=== PATIENT | female | born 1995 | race Caucasian/White ===

== ENCOUNTER → 2016-05-17 | Day surgery (SDC) | payer OTHER ==
[~2016-05-17] MED LIST: FENTANYL PF 100 MCG/2 ML VIAL. IV PRN; HYDROMORPHONE 2 MG/ML VIAL. IV PRN; IV RINGERS,LACTATED 1000ML 1,000 ML IV SCH; LIDOCAINE 1% 1 ML SYRINGE. ID PRN; LIDOCAINE 2% PF Vial for OR 5 ML VIAL. ONE; MORPHINE SULFATE 2 MG/ML DISP.SYRIN. IV PRN; ONDANSETRON PF 4 MG/2 ML VIAL. IV PRN; PROCHLORPERAZINE 10 MG/2 ML VIAL. IV PRN; PROPOFOL 40 ML IV ONE; birth control
[2016-05-17 09:24] LABS: NEG OBC UR NEG; POS OBC UR POS
--- NOTE | 2016-05-17 09:43 | PDOC1 ---
HISTORY & PHYSICAL H&P Yajaira Ramirez This 21 year old female presents for Constipation. History of Present Illness: 1. H/o colon polyp removed in 2013 and is here for repeat colonoscopy. Has some constipation but otherwise no other issue. PROBLEM LIST: Problem Description Onset Date Hemorrhoids 06/05/2013 PAST MEDICAL/SURGICAL HISTORY (Detailed) Disease/disorder Onset Date Management Date Comments [place] teeth extraction Colonic polyps colonoscopy with biopsy 05/14/2013 Internal hemorrhoids DIAGNOSTICS HISTORY: Test Ordered Interpretation Result completed SMALL BOWEL SERIES 12/18/2012 Imp: Unremarkable small bowel series. 12/22/2012 COLONOSCOPY AND BIOPSY 04/24/2013 Imp: ?Ileitis, (bx). Polyp, (bx). Grade 1 Internal hemorrhoids. 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 05/14/2013 Test Ordered Ordering Comments Modifier SMALL BOWEL SERIES 12/18/2012 COLONOSCOPY AND BIOPSY 04/24/2013 Family History (Detailed) Relationship Family Member Name Age at Condition Onset Age Cause of Maternal grandmother N Cancer, bladder N Mother N Cancer, breast N Paternal grandmother N Cancer, lung N SOCIAL HISTORY (Detailed) Tobacco use reviewed. The patient is right-handed. Preferred language is Ukrainian. MARITAL STATUS/FAMILY/SOCIAL SUPPORT Currently single. 0 son(s). 0 daughter(s). Smoking status: Never smoker. SMOKING STATUS Use Status Type Smoking Status Usage Per Day Years Used Total Pack Years no/never Never smoker TOBACCO CESSATION INFORMATION Date Counseled By Order Status Description Code Tobacco Cessation Information 04/24/2013 Kal Rosario Tobacco cessation counseling completed Tobacco cessation counseling The patient does not use caffeine. EXPERIENCE Patient has no experience. Medication Reconciliation Patient is on no medications. Allergies Ingredient Reaction Medication Name Comment SULFA (SULFONAMIDE ANTIBIOTICS) hives REVIEW OF SYSTEMS System Neg/Pos Details Constitutional Negative Chills and fever. ENMT Negative Ear infections and nasal congestion. Respiratory Negative Chronic cough, dyspnea and wheezing. Cardio Negative Chest pain. GI Negative Abdominal pain, black tarry stools, bloating, change in appetite, change in stool caliber and nausea. Negative Dysuria. Endocrine Negative Cold intolerance and heat intolerance. Neuro Negative Dizziness and headache. Psych Negative Anxiety and depression. MS Negative Back pain and joint pain. Lucho/Lymph Negative Easy bleeding and easy bruising. Physical Exam Exam Findings Details Genitourinary Female Normal No suprapubic tenderness. No CVA tenderness. Constitutional Normal Well developed. Eyes Normal Conjunctiva - Right: Normal, Left: Normal. Sclera - Right: Normal, Left: Normal. Nasopharynx Normal Lips/teeth/gums - Normal. Neck Exam Normal Inspection - Normal. Thyroid gland - Normal. Respiratory Normal Inspection - Normal. Auscultation - Normal. Cardiovascular Normal Regular rate and rhythm. No murmurs, gallops, or rubs. Vascular Normal Pulses - Carotids: Normal, Femoral: Normal, Dorsalis pedis: Normal. Abdomen Normal Inspection - Normal. No abdominal tenderness. No hepatic enlargement. No splenic enlargement. No hernia. Rectal Normal Anus - Normal. Sphincter - Normal Skin Normal Inspection - Normal. Extremity Normal No edema. Psychiatric Normal Oriented to time, place, person, and situation. Appropriate mood and effect. # Detail Type Description 1. Assessment h/o colonic polyp Impression Patient Plan Colonoscopy for surveillance. Plan Orders Schedule Colonoscopy ------ 05/17/16 Patient seen and examined. No change in H&P. RICHARD RAINES MD May 17, 2016 09:14
--- NOTE | 2016-05-17 09:48 | PDOC4 ---
GI OP Report - Dr. Raines Date/Time DATE: 05/17/16 TIME: 09:46 Attending Physician Irineo Raines MD Referring Physician Indications Personal history of colonic polyps Pre-Op See the Anesthesia note for documentation of the administered medications Procedures Colonoscopy Findings - The entire examined colon is normal on direct and retroflexion views. - No specimens collected. Plan - Discharge patient to home. - Patient has a contact number available for emergencies. The signs and symptoms of potential delayed complications were discussed with the patient. Return to normal activities tomorrow. Written discharge instructions were provided to the patient. - Resume regular diet. - Continue present medications. - Repeat colonoscopy in 5 years for surveillance. - Return to my office as needed. IRINEO RAINES MD May 17, 2016 09:48
[2016-05-17 10:05] VITALS: BP 110/77
== END | disposition home or self-care (01) ==
LOC: ENDOS 08:40
PROVIDERS: ATTEND Internal Medicine Gastroenterology
DX: Z86.010 Personal history of colon polyps (principal)
CPT/HCPCS: 45378; 81025; J2704